=== PATIENT | male | born 1960 | race American Indian/Alaskan Native ===

== ENCOUNTER 2018-05-22 21:05 | Inpatient (IN) | payer OTHER ==
[2018-05-22] MEDS ORDERED: Enalaprilat 2.5 MG/2 ML IV ONE (21:38)
--- NOTE | 2018-05-22 21:38 | C.PDOC ---
History Of Present Illness 58 y/o male presents to the ED complaining of HTN that began earlier today. He states he went to his PMD office for a routine visit, but his BP was found to be 200/100. The patient reports he is compliant with his medication. He does not recall how long his BP has been elevated for. The patient adds he was given a prescription for Benicar but it has not yet been filled. He reports experiencing a headache and intermittent vertigo, "dizzy" feeling for two days. The patient denies any chest pain, blurred vision or focal weakness. HTN TODAY. PS WENT TO PMD OFFICE FOR ROUTINE VISIT, FOUND TO BE 200/100. PS COMPLIANT W MEDS, DOES NOT KNOW HOW LONG HAS BEEN ELEVATED. GIVEN RX FOR BENICAR BUT HAS NOT FILLED IT YET. +SOLORIO, INTERMIT VERTIGO-LIKE DIZZY X 2 DAYS. NO OTHER ASSOC SX EXAM 208/120 NAD NONTOXIC NEG Time Seen by Provider: 05/22/18 21:24 Chief Complaint (Nursing): High Blood Pressure History Per: Patient History/Exam Limitations: no limitations Onset/Duration Of Symptoms: Hrs Current Symptoms Are (Timing): Still Present Associated Symptoms: Dizziness, Headache Recent travel outside of the [place]: No Past Medical History Reviewed: Historical Data, Nursing Documentation, Vital Signs Vital Signs: Last Vital Signs Temp 98.3 F 05/22/18 23:21 Pulse 93 H 05/22/18 23:38 Resp 15 05/22/18 23:38 BP 200/122 H 05/22/18 23:38 Pulse Ox 99 05/22/18 23:38 - Medical History PMH: HTN Other Surgeries: Colon resection Family History: States: Unknown Family Hx - Social History Hx Alcohol Use: Yes Hx Substance Use: No - Immunization History Hx Tetanus Toxoid Vaccination: No Hx Influenza Vaccination: No Hx Pneumococcal Vaccination: No Review Of Systems Except As Marked, All Systems Reviewed And Found Negative. Constitutional: Negative for: Fever Neurological: Positive for: Headache, Dizziness Physical Exam - Physical Exam Appears: Non-toxic, No Acute Distress Skin: Normal Color, Warm, Dry Head: Atraumatic, Normacephalic Eye(s): bilateral: PERRL, EOMI Ear(s): Bilateral: Normal Oral Mucosa: Moist Neck: Normal ROM Chest: Symmetrical Cardiovascular: No Murmur, Other (208/120) Respiratory: No Rales, No Rhonchi, No Wheezing, Other (NARD) Gastrointestinal/Abdominal: Bowel Sounds, Soft, No Tenderness Extremity: Normal ROM Extremity: Bilateral: Atraumatic, Normal Color And Temperature, Normal ROM Pulses: Left Radial: Normal, Right Radial: Normal Neurological/Psych: Oriented x3, Normal Speech, Other (no focal deficits ) ED Course And Treatment - Laboratory Results Result Diagrams: 05/22/18 22:38 05/22/18 22:38 ECG: Interpreted By Me ECG Rhythm: Sinus Rhythm Interpretation Of ECG: BIFASC Rate From EC O2 Sat by Pulse Oximetry: 99 (RA) Pulse Ox Interpretation: Normal - Radiology CXR: Interpreted by Me CXR Interpretation: Yes: Other (L CHEST MASS) - CT Scan/US Head Other Rad Studies (CT/US): Read By Radiologist, Radiology Report Reviewed CT/US Interpretation: IMPRESSION: LEFT cerebellar mass with focal mass effect upon the fourth ventricle. No ventriculomegaly. Thank you for allowing us to participate in the care of your patient. Progress - Re-Evaluation Re-evaluation Note: 05/22/18 22:50 PERSIST HTN, SOLORIO IMPROVED. NEURO INTACT. PT NOW STATES HO COLON CA W RESECTION 2006, GETS ANNUAL COLONOSCOPY "AND WAS ALWAYS FINE". HO SARCOIDOSIS, DENIES SARCOID FLARE IN 17 YRS. @ BEDSIDE, STATES PT RECEIVED BENICAR 2 WKS AGO AND PT TRIED FILL RX BUT NONE @ PHARMACY. 05/22/18 23:00 D/W DR ANGELA C/F ICU AWARE OF ER FINDINGS WILL EVAL 05/22/18 23:08 D/W DR CANALES DECMADHURON 10 MG, WILL CONSULT. 05/22/18 23:15 D/W DR REGALADO MED SWIMMING POOL SALESPERSON WILL ADMIT. PENDING ICU EVAL 05/22/18 23:39 ACCEPTED FOR ICU - Data Reviewed Data Reviewed: Lab, Diagnostic imaging, EKG, Old records - Critical Care Citical Care: Excluding Proc Time Critical Care Time: 90 minutes - Continuity of Care Discussed patient case with:: Patient, Family-HIPPA compliant, On-call PMD-pt unassigned Discussed pt. case with it architecture consultant/specialty: Neurological Surgery, Pulmonary/ Crit. Care Medical Decision Making Medical Decision Making: Impression: 58 y/o male with HTN, reports a SOLORIO and feeling dizzy Plan: -Head CT -EKG -CMP -CBC -PTT -PT -Chest X-Ray -Reglan 10 mg IV -Trandate 20 mg IV -Tylenol 650 mg PO -Vasotec 2.5 mg Disposition Counseled Patient/Family Regarding: Studies Performed, Diagnosis - Disposition Disposition: HOSPITALIZED Disposition Time: 23:10 Condition: SERIOUS Forms: [facility] (Stateless) - POA Present On Arrival: None - Clinical Impression Clinical Impression: Hypertensive emergency, Brain mass, Headache - PA / OUTREACH CONSULTANT / Resident Statement MD/DO has reviewed & agrees with the documentation as recorded. - Scribe Statement The provider has reviewed the documentation as recorded by the Scribe (Lucia Leung) All medical record entries made by the Scribe were at my direction and personally dictated by me. I have reviewed the chart and agree that the record accurately reflects my personal performance of the history, physical exam, medical decision making, and the department course for this patient. I have also personally directed, reviewed, and agree with the discharge instructions and disposition.
[2018-05-22] MEDS ORDERED: Enalaprilat 2.5 MG/2 ML ONE (21:47)
[2018-05-22] MEDS ORDERED: Labetalol 25mg/5ml Syringe IVP STA (22:34)
[2018-05-22 22:46] LABS: BASO % 0.5 % (0.0-2.0); EOS # 0.1 K/uL (0.0-0.7); EOS % 1.1 % (0.0-4.0); HEMOGLOBIN 14.8 g/dL (12.0-18.0); LYMPH # 1.6 K/uL (1.0-4.3); LYMPH % 26.6 % (20.0-40.0); MEAN CELL VOLUME 82.3 fL (80.0-94.0); MEAN CORPUSCULAR HGB CONC 34.1 g/dL (33.0-37.0); MEAN PLATELET VOLUME 8.1 fL (7.2-11.7); MONO # 0.7 K/uL (0.0-0.8); MONO % 11.9 % (0.0-10.0); NEUT # 3.7 K/uL (1.8-7.0); NEUT % 59.9 % (50.0-75.0); NRBC % 0.1 % (0.0-2.0); RBC 5.26 Mil/uL (4.40-5.90); WHITE BLOOD COUNT 6.1 K/uL (4.8-10.8)
[2018-05-22 22:51] LABS: INR 1.1; PROTHROMBIN TIME 11.7 SECONDS (9.7-12.2)
[2018-05-22 22:55] LABS: ALB/GLOB RATIO 1.2 (1.0-2.1); CALCIUM 9.4 mg/dl (8.6-10.4)
--- NOTE | 2018-05-22 23:54 | CP.PCM.CON ---
History of Present Illness - History of Present Illness History of Present Illness: CCM 58 yo black male with hx HTN/Colon Ca/ s/p Resection 2006/Sarcoidosis to ED c/o SOLORIO x 3 days. Also with dizziness and unsteady ambulating. No sob/ visual change /n /v /d /urinary sx. Pt only compliant with nrovasc not recently prescribed benicar. In ED BP 191/124 and pt given IV enalapril then labetolol. Pt currently without SOLORIO. ROS- as noted All- ?floreseine dye Social- no tob/etoh/ drugs Meds-reviewed FH- Unknown PE T-98.3 P-93 R-22 BP 206/120 Perrl Neck- no jvd lungs- bilat bs Heart-rr aBd- benign eXt- nontender Neuro- no motor or sensory deficits Labs, ekg, [id number] A&P HTN Emergency Left Cerebellar Brain Mass Left Lung Mass Hx Colon Ca Sarcoidosis MICHELLE Admit to ICU BP control with Cardene Neurosurgery eval Repeat CT Brain as per NS Neuro checks cont decadron CT Chest Pulmonary eval DVT & GI prophylaxis critical care time spent 35 min Past Patient History - Infectious Disease Hx of Infectious Diseases: None - Past Social History Smoking Status: Never Smoked - CARDIAC Hx Hypertension: Yes - HEMATOLOGICAL/ONCOLOGICAL Hx Cancer: Yes (colon ca 2006) - PSYCHIATRIC Hx Substance Use: No - SURGICAL HISTORY Hx Surgeries: Yes Other/Comment: Colon Resection - ANESTHESIA Hx Anesthesia: Yes Hx Anesthesia Reactions: No Meds Allergies/Adverse Reactions: Allergies Allergy/AdvReac Type Severity Reaction Status Date / Time dye Allergy Uncoded 05/22/18 21:26 Results - Vital Signs Recent Vital Signs: Last Vital Signs Temp 98.3 F 05/22/18 23:21 Pulse 93 H 05/22/18 23:38 Resp 15 05/22/18 23:38 BP 200/122 H 05/22/18 23:38 Pulse Ox 99 05/22/18 23:39 - Labs Result Diagrams: 05/22/18 22:38 05/22/18 22:38 Labs: Laboratory Results - last 24 hr 05/22/18 05/22/18 05/22/18 22:38 22:38 22:38 WBC 6.1 RBC 5.26 Hgb 14.8 Hct 43.3 MCV 82.3 MCH 28.0 MCHC 34.1 RDW 14.0 Plt Count 211 MPV 8.1 Neut % (Auto) 59.9 Lymph % (Auto) 26.6 Wolfe % (Auto) 11.9 H Eos % (Auto) 1.1 Baso % (Auto) 0.5 Neut # (Auto) 3.7 Lymph # (Auto) 1.6 Wolfe # (Auto) 0.7 Eos # (Auto) 0.1 Baso # (Auto) 0.0 PT 11.7 INR 1.1 APTT 35 H Sodium 139 Potassium 3.9 Chloride 98 Carbon Dioxide 32 H Anion Gap 13 BUN 24 H Creatinine 1.5 Est GFR ( Amer) 58 Est GFR (Non-Af Amer) 48 Random Glucose 101 Calcium 9.4 Total Bilirubin 0.6 AST 41 ALT 31 Alkaline Phosphatase 64 Total Protein 7.4 Albumin 4.0 Globulin 3.4 Albumin/Globulin Ratio 1.2 Assessment & Plan (1) Hypertensive emergency Status: Acute (2) Brain mass Status: Acute (3) Sarcoidosis Status: Chronic (4) Hx of malignant neoplasm of colon Status: Chronic (5) Lung abnormality Status: Acute
[2018-05-23] MEDS: niCARdipine IV 25 MG in Sodium Chloride 0.9% 240 ML IV PRN ×2 (00:26→08:01)
[2018-05-23] MEDS: Dexamethasone 4 mg/1 ml IV SCH ×3 (05:15→18:27)
[2018-05-23 06:22] LABS: BASO % 0.3 % (0.0-2.0); EOS % 0.1 % (0.0-4.0); HEMOGLOBIN 14.9 g/dL (12.0-18.0); LYMPH # 0.6 K/uL (1.0-4.3); MEAN CELL VOLUME 81.4 fL (80.0-94.0); MEAN CORPUSCULAR HEMOGLOBIN 27.7 pg (27.0-31.0); MEAN PLATELET VOLUME 8.4 fL (7.2-11.7); MONO # 0.2 K/uL (0.0-0.8); MONO % 2.4 % (0.0-10.0); NEUT # 5.4 K/uL (1.8-7.0); NEUT % 87.2 % (50.0-75.0); NRBC % 0.1 % (0.0-2.0); RBC 5.38 Mil/uL (4.40-5.90); RED CELL DISTRIBUTION WIDTH 13.9 % (11.5-14.5); WHITE BLOOD COUNT 6.2 K/uL (4.8-10.8)
[2018-05-23 06:37] LABS: ALB/GLOB RATIO 1.2 (1.0-2.1); ALBUMIN 4.3 g/dL (3.5-5.0); CALCIUM 9.6 mg/dl (8.6-10.4)
--- NOTE | 2018-05-23 07:58 | CT ---
Date of service: 05/22/2018 PROCEDURE: CT HEAD WITHOUT CONTRAST. HISTORY: Hypertension. Headache. COMPARISON: None available. TECHNIQUE: Axial computed tomography images were obtained through the head/brain without intravenous contrast. Radiation dose: Total exam DLP = 1196 mGy-cm. This CT exam was performed using one or more of the following dose reduction techniques: Automated exposure control, adjustment of the mA and/or kV according to patient size, and/or use of iterative reconstruction technique. FINDINGS: HEMORRHAGE: No intracranial hemorrhage. BRAIN: 2.9 x 2.7 centimeter mass in the left cerebellar hemisphere which has scattered areas of peripheral and central increased attenuation as well as demonstrating surrounding edema and focal mass effect on the left aspect of the 4th ventricle. VENTRICLES: Unremarkable. No hydrocephalus. CALVARIUM: Unremarkable. PARANASAL SINUSES: Unremarkable as visualized. No significant inflammatory changes. MASTOID AIR CELLS: Unremarkable as visualized. No inflammatory changes. OTHER FINDINGS: None. IMPRESSION: 2.9 centimeter left cerebellar mass with focal mass effect on the 4th ventricle. Further evaluation with contrast-enhanced MRI would be helpful for better evaluation of this lesion if clinically indicated. These findings were preliminarily reported at 10:40 p.m. on 05/22/[address] Anisa Camacho from [facility]. Dr. Hurtado discussed these findings with Dr. Glass at 10:58 p.m. on 05/22/2018.
--- NOTE | 2018-05-23 08:37 | RAD ---
HISTORY: COMPARISON: No prior. TECHNIQUE: Chest PA and lateral FINDINGS: LINES AND TUBES: None. LUNG AND PLEURA: The lungs are well inflated. There is a well-circumscribed opacity in the left perihilar region. The right lung is clear. No pleural effusion or pneumothorax. HEART AND MEDIASTINUM: The heart is not enlarged. The hilar and mediastinal contours are within normal limits. SKELETAL STRUCTURES: The bony structures are within normal limits for the patient's age. VISUALIZED UPPER ABDOMEN: Normal. OTHER FINDINGS: None. IMPRESSION: Well-circumscribed opacity in the left perihilar region. Further evaluation with CT scan with intravenous contrast is advised.
--- NOTE | 2018-05-23 08:44 | CP.CCUPN ---
<Walter Eller - Last Filed: 05/23/18 16:19> CCU Subjective - Physician Review Subjective (Free Text): 05/23/18 16:01 ICU Progress Note Patient seen and examined at bedside. He states he no longer has a headache and does not feel dizzy currently. He states he has not been walking but prior to admission has not been able to walk straight. He states he has only been taking Norvasc consistently. He admits he was recently prescribed Benicar but was not able to fill his script. He denies fever, chills, chest pain, difficulty breathing, abdominal pain, nausea, vomiting, diarrhea, leg pain. He states he was diagnosed with colon cancer in 2006 and had a colon resection then. 05/23/18 16:19 05/23/18 16:23 CCU Objective - Vital Signs / Intake & Output Vital Signs (Last 4 hours): Vital Signs Temp Pulse Resp BP Pulse Ox 05/23/18 06:00 98 F 96 H 17 96 05/23/18 05:48 139/92 H 05/23/18 05:00 82 12 95 05/23/18 04:48 151/77 H Intake and Output (Last 8hrs): Intake & Output 05/22/18 05/23/18 05/23/18 22:59 06:59 14:59 Intake Total 540 Output Total 500 Balance 40 Weight 230 lb 230 lb Intake: IV 250 Intake, IV Amount 290 Right Antecubital 290 Output: Urine 500 Urine, Voided 500 Other: # Bowel Movements 1 - Physical Exam Head: Positive for: Atraumatic, Normocephalic Pupils: Positive for: PERRL Extroacular Muscles: Positive for: EOMI Mouth: Positive for: Moist Mucous Membranes Neck: Positive for: Normal Range of Motion Respiratory/Chest: Positive for: Decreased Breath Sounds Cardiovascular: Positive for: Regular Rate and Rhythm, Normal S1, S2 Abdomen: Positive for: Normal Bowel Sounds. Negative for: Tenderness, Peritoneal Signs Upper Extremity: Positive for: NORMAL PULSES. Negative for: Edema Lower Extremity: Negative for: CALF TENDERNESS Neurological: Positive for: GCS=15, Speech Normal Skin: Positive for: Warm, Dry Psychiatric: Positive for: Alert, Oriented x 3 - Medications Active Medications: Active Medications Generic Name Dose Route Start Last Admin Trade Name Freq PRN Reason Stop Dose Admin Acetaminophen 650 mg 05/23/18 00:06 Tylenol 325mg Tab PO Q4 PRN Pain, Mild (1-3) Dexamethasone 4 mg 05/23/18 06:00 05/23/18 05:15 Decadron Inj IV 4 mg Q6H HAL Administration Famotidine 20 mg 05/23/18 00:15 05/23/18 00:17 Pepcid IVP 20 mg Q12 HAL Administration Nicardipine HCl 25 mg/ Sodium 250 mls @ 50 mls/hr 05/23/18 00:15 05/23/18 08: 01 Chloride IV 3 mg/hr .Q5H PRN 30 mls/hr Protocol Administration 5 MG/HR - Patient Studies Lab Studies: Lab Studies 05/23/18 05/23/18 05/22/18 Range/Units 06:12 06:12 22:38 WBC 6.2 (4.8-10.8) K/uL RBC 5.38 (4.40-5.90) Mil/uL Hgb 14.9 (12.0-18.0) g/dL Hct 43.8 (35.0-51.0) % MCV 81.4 (80.0-94.0) fL MCH 27.7 (27.0-31.0) pg MCHC 34.0 (33.0-37.0) g/dL RDW 13.9 (11.5-14.5) % Plt Count 244 (130-400) K/uL MPV 8.4 (7.2-11.7) fL Neut % (Auto) 87.2 H (50.0-75.0) % Lymph % (Auto) 10.0 L (20.0-40.0) % [place] % (Auto) 2.4 (0.0-10.0) % Eos % (Auto) 0.1 (0.0-4.0) % Baso % (Auto) 0.3 (0.0-2.0) % Neut # (Auto) 5.4 (1.8-7.0) K/uL Lymph # (Auto) 0.6 L (1.0-4.3) K/uL [place] # (Auto) 0.2 (0.0-0.8) K/uL Eos # (Auto) 0.0 (0.0-0.7) K/uL Baso # (Auto) 0.0 (0.0-0.2) K/uL PT (9.7-12.2) SECONDS INR APTT (21-34) SECONDS Sodium 139 139 (132-148) mmol/L Potassium 4.0 3.9 (3.6-5.2) mmol/L Chloride 101 98 (98-107) mmol/L Carbon Dioxide 28 32 H (22-30) mmol/L Anion Gap 15 13 (10-20) BUN 24 H 24 H (9-20) mg/dL Creatinine 1.7 H 1.5 (0.8-1.5) mg/dL Est GFR ( Amer) 50 58 Est GFR (Non-Af Amer) 41 48 Random Glucose 161 H 101 (75-110) mg/dL Calcium 9.6 9.4 (8.6-10.4) mg/dl Total Bilirubin 0.5 0.6 (0.2-1.3) mg/dL AST 33 41 (17-59) U/L ALT 34 31 (21-72) U/L Alkaline Phosphatase 73 64 (38-126) U/L Total Protein 7.9 7.4 (6.3-8.3) g/dL Albumin 4.3 4.0 (3.5-5.0) g/dL Globulin 3.5 3.4 (2.2-3.9) gm/dL Albumin/Globulin Ratio 1.2 1.2 (1.0-2.1) 05/22/18 05/22/18 Range/Units 22:38 22:38 WBC 6.1 (4.8-10.8) K/uL RBC 5.26 (4.40-5.90) Mil/uL Hgb 14.8 (12.0-18.0) g/dL Hct 43.3 (35.0-51.0) % MCV 82.3 (80.0-94.0) fL MCH 28.0 (27.0-31.0) pg MCHC 34.1 (33.0-37.0) g/dL RDW 14.0 (11.5-14.5) % Plt Count 211 (130-400) K/uL MPV 8.1 (7.2-11.7) fL Neut % (Auto) 59.9 (50.0-75.0) % Lymph % (Auto) 26.6 (20.0-40.0) % [place] % (Auto) 11.9 H (0.0-10.0) % Eos % (Auto) 1.1 (0.0-4.0) % Baso % (Auto) 0.5 (0.0-2.0) % Neut # (Auto) 3.7 (1.8-7.0) K/uL Lymph # (Auto) 1.6 (1.0-4.3) K/uL [place] # (Auto) 0.7 (0.0-0.8) K/uL Eos # (Auto) 0.1 (0.0-0.7) K/uL Baso # (Auto) 0.0 (0.0-0.2) K/uL PT 11.7 (9.7-12.2) SECONDS INR 1.1 APTT 35 H (21-34) SECONDS Sodium (132-148) mmol/L Potassium (3.6-5.2) mmol/L Chloride (98-107) mmol/L Carbon Dioxide (22-30) mmol/L Anion Gap (10-20) BUN (9-20) mg/dL Creatinine (0.8-1.5) mg/dL Est GFR ( Amer) Est GFR (Non-Af Amer) Random Glucose (75-110) mg/dL Calcium (8.6-10.4) mg/dl Total Bilirubin (0.2-1.3) mg/dL AST (17-59) U/L ALT (21-72) U/L Alkaline Phosphatase (38-126) U/L Total Protein (6.3-8.3) g/dL Albumin (3.5-5.0) g/dL Globulin (2.2-3.9) gm/dL Albumin/Globulin Ratio (1.0-2.1) Laboratory Results - last 24 hr 05/22/18 05/22/18 05/22/18 22:38 22:38 22:38 WBC 6.1 RBC 5.26 Hgb 14.8 Hct 43.3 MCV 82.3 MCH 28.0 MCHC 34.1 RDW 14.0 Plt Count 211 MPV 8.1 Neut % (Auto) 59.9 Lymph % (Auto) 26.6 [place] % (Auto) 11.9 H Eos % (Auto) 1.1 Baso % (Auto) 0.5 Neut # (Auto) 3.7 Lymph # (Auto) 1.6 [place] # (Auto) 0.7 Eos # (Auto) 0.1 Baso # (Auto) 0.0 PT 11.7 INR 1.1 APTT 35 H Sodium 139 Potassium 3.9 Chloride 98 Carbon Dioxide 32 H Anion Gap 13 BUN 24 H Creatinine 1.5 Est GFR ( Amer) 58 Est GFR (Non-Af Amer) 48 Random Glucose 101 Calcium 9.4 Total Bilirubin 0.6 AST 41 ALT 31 Alkaline Phosphatase 64 Total Protein 7.4 Albumin 4.0 Globulin 3.4 Albumin/Globulin Ratio 1.2 05/23/18 05/23/18 06:12 06:12 WBC 6.2 RBC 5.38 Hgb 14.9 Hct 43.8 MCV 81.4 MCH 27.7 MCHC 34.0 RDW 13.9 Plt Count 244 MPV 8.4 Neut % (Auto) 87.2 H Lymph % (Auto) 10.0 L [place] % (Auto) 2.4 Eos % (Auto) 0.1 Baso % (Auto) 0.3 Neut # (Auto) 5.4 Lymph # (Auto) 0.6 L [place] # (Auto) 0.2 Eos # (Auto) 0.0 Baso # (Auto) 0.0 PT INR APTT Sodium 139 Potassium 4.0 Chloride 101 Carbon Dioxide 28 Anion Gap 15 BUN 24 H Creatinine 1.7 H Est GFR ( Amer) 50 Est GFR (Non-Af Amer) 41 Random Glucose 161 H Calcium 9.6 Total Bilirubin 0.5 AST 33 ALT 34 Alkaline Phosphatase 73 Total Protein 7.9 Albumin 4.3 Globulin 3.5 Albumin/Globulin Ratio 1.2 EKG/Cardiology Studies: Cardiology / EKG Studies 05/22/18 21:38 ELECTROCARDIOGRAM Stat Comment: Mode Of Transportation: BED Reason For Exam: HTN Review of Systems - Constitutional Constitutional: absent: Fever, Chills - EENT Eyes: absent: Change in Vision Nose/Mouth/Throat: absent: Sore Throat - Cardiovascular Cardiovascular: absent: Chest Pain, Dyspnea - Respiratory Respiratory: absent: Cough, Dyspnea - Gastrointestinal Gastrointestinal: absent: Abdominal Pain, Nausea, Vomiting - Genitourinary Genitourinary: absent: Difficulty Urinating, Dysuria - Musculoskeletal Musculoskeletal: Abnormal Gait. absent: Back Pain - Psychiatric Psychiatric: absent: Anxiety, Depression Assessment/Plan - Assessment and Plan (Free Text) Assessment: 58 year Madie male with history of HTN, Colon Cancer s/p Resection 2006, sarcoidosis complains of 3 day history of headache, dizziness and unsteady gait. Blood pressure found to be elevated at 191/124. Patient was on Cardene drip, prior to being transitioned to PO meds. Plan: Neuro Alert and oriented CT head 2.9 centimeter left cerebellar mass with focal mass effect on the 4th ventricle. Further evaluation with contrast-enhanced MRI would be helpful for better evaluation of this lesion if clinically indicated. Repeat CT head No change in a 2.9 centimeter left cerebellar mass with focal mass effect on the 4th ventricle. Decadron 4mg IV Q6 Neurosurgery Dr. Hartmann consulted, help appreciated MRI brain with and without contrast ordered. Pulmonary CXR: Well-circumscribed opacity in the left perihilar region CT chest 6.8 x 5.9 cm mass in the left upper lobe with internal calcifications and extension toward the left hilum. Additional bilateral lung lesions measuring up to 2 cm in the left lower lobe/ Large bilateral adrenal masses, left greater than right.Findings likely represent lung carcinoma primary with intraparenchymal and adrenal metastases. Hedge Trimmer Dr. Kent consulted, help appreciated Cardiovascular Hx of HTN, currently BP improved from admission. Norvasc 10mg PO HCTZ 25mg PO Losartan 100mg PO Nicardipine drip d/mike GI Pepcid 20mg IV Q12 Renal Continue to monitor electrolytes, replete as needed I&Os BUN/Cr 24/1.7 Endo Maintain euglycemia ID No evidence of infection Heme/Onc Dr. Elam consulted, help appreciated PPX Case discussed with Dr. Tejada <Chance Tejada - Last Filed: 05/23/18 18:18> CCU Objective - Vital Signs / Intake & Output Vital Signs (Last 4 hours): Vital Signs Temp Pulse Resp BP Pulse Ox 05/23/18 16:00 99.3 F 107 H 18 97 05/23/18 15:28 113 H 16 165/104 H 98 Intake and Output (Last 8hrs): Intake & Output 05/23/18 05/23/18 05/23/18 06:59 14:59 22:59 Intake Total 540 720 740 Output Total 500 0 0 Balance 40 720 740 Weight 230 lb Intake: IV 250 240 Intake, IV Amount 290 240 20 Right Antecubital 290 240 20 Oral 480 480 Output: Urine 500 0 0 Urine, Voided 500 0 0 Stool 0 Other: # Bowel Movements 1 0 0 - Medications Active Medications: Active Medications Generic Name Dose Route Start Last Admin Trade Name Freq PRN Reason Stop Dose Admin Acetaminophen 650 mg 05/23/18 00:06 Tylenol 325mg Tab PO Q4 PRN Pain, Mild (1-3) Amlodipine Besylate 10 mg 05/23/18 12:30 05/23/18 12:32 Norvasc PO 10 mg DAILY HAL Administration Dexamethasone 4 mg 05/23/18 06:00 05/23/18 12:31 Decadron Inj IV 4 mg Q6H HAL Administration Famotidine 20 mg 05/23/18 00:15 05/23/18 09:34 Pepcid IVP 20 mg Q12 HAL Administration Hydrochlorothiazide 25 mg 05/23/18 12:30 05/23/18 12:32 Hydrodiuril PO 25 mg DAILY HAL Administration Nicardipine HCl 25 mg/ Sodium 250 mls @ 50 mls/hr 05/23/18 00:15 05/23/18 15: 30 Chloride IV 0 mg/hr .Q5H PRN 0 mls/hr Protocol Titration 5 MG/HR Losartan Potassium 100 mg 05/23/18 12:30 05/23/18 12:32 Cozaar PO 100 mg DAILY HAL Administration Losartan Potassium 50 mg 05/23/18 18:00 Cozaar PO ONCE PRN for BP greater than 160/90 - Patient Studies Lab Studies: Lab Studies 05/23/18 05/23/18 05/22/18 Range/Units 06:12 06:12 22:38 WBC 6.2 (4.8-10.8) K/uL RBC 5.38 (4.40-5.90) Mil/uL Hgb 14.9 (12.0-18.0) g/dL Hct 43.8 (35.0-51.0) % MCV 81.4 (80.0-94.0) fL MCH 27.7 (27.0-31.0) pg MCHC 34.0 (33.0-37.0) g/dL RDW 13.9 (11.5-14.5) % Plt Count 244 (130-400) K/uL MPV 8.4 (7.2-11.7) fL Neut % (Auto) 87.2 H (50.0-75.0) % Lymph % (Auto) 10.0 L (20.0-40.0) % [place] % (Auto) 2.4 (0.0-10.0) % Eos % (Auto) 0.1 (0.0-4.0) % Baso % (Auto) 0.3 (0.0-2.0) % Neut # (Auto) 5.4 (1.8-7.0) K/uL Lymph # (Auto) 0.6 L (1.0-4.3) K/uL [place] # (Auto) 0.2 (0.0-0.8) K/uL Eos # (Auto) 0.0 (0.0-0.7) K/uL Baso # (Auto) 0.0 (0.0-0.2) K/uL PT (9.7-12.2) SECONDS INR APTT (21-34) SECONDS Sodium 139 139 (132-148) mmol/L Potassium 4.0 3.9 (3.6-5.2) mmol/L Chloride 101 98 (98-107) mmol/L Carbon Dioxide 28 32 H (22-30) mmol/L Anion Gap 15 13 (10-20) BUN 24 H 24 H (9-20) mg/dL Creatinine 1.7 H 1.5 (0.8-1.5) mg/dL Est GFR ( Amer) 50 58 Est GFR (Non-Af Amer) 41 48 Random Glucose 161 H 101 (75-110) mg/dL Calcium 9.6 9.4 (8.6-10.4) mg/dl Total Bilirubin 0.5 0.6 (0.2-1.3) mg/dL AST 33 41 (17-59) U/L ALT 34 31 (21-72) U/L Alkaline Phosphatase 73 64 (38-126) U/L Total Protein 7.9 7.4 (6.3-8.3) g/dL Albumin 4.3 4.0 (3.5-5.0) g/dL Globulin 3.5 3.4 (2.2-3.9) gm/dL Albumin/Globulin Ratio 1.2 1.2 (1.0-2.1) 05/22/18 05/22/18 Range/Units 22:38 22:38 WBC 6.1 (4.8-10.8) K/uL RBC 5.26 (4.40-5.90) Mil/uL Hgb 14.8 (12.0-18.0) g/dL Hct 43.3 (35.0-51.0) % MCV 82.3 (80.0-94.0) fL MCH 28.0 (27.0-31.0) pg MCHC 34.1 (33.0-37.0) g/dL RDW 14.0 (11.5-14.5) % Plt Count 211 (130-400) K/uL MPV 8.1 (7.2-11.7) fL Neut % (Auto) 59.9 (50.0-75.0) % Lymph % (Auto) 26.6 (20.0-40.0) % [place] % (Auto) 11.9 H (0.0-10.0) % Eos % (Auto) 1.1 (0.0-4.0) % Baso % (Auto) 0.5 (0.0-2.0) % Neut # (Auto) 3.7 (1.8-7.0) K/uL Lymph # (Auto) 1.6 (1.0-4.3) K/uL [place] # (Auto) 0.7 (0.0-0.8) K/uL Eos # (Auto) 0.1 (0.0-0.7) K/uL Baso # (Auto) 0.0 (0.0-0.2) K/uL PT 11.7 (9.7-12.2) SECONDS INR 1.1 APTT 35 H (21-34) SECONDS Sodium (132-148) mmol/L Potassium (3.6-5.2) mmol/L Chloride (98-107) mmol/L Carbon Dioxide (22-30) mmol/L Anion Gap (10-20) BUN (9-20) mg/dL Creatinine (0.8-1.5) mg/dL Est GFR ( Amer) Est GFR (Non-Af Amer) Random Glucose (75-110) mg/dL Calcium (8.6-10.4) mg/dl Total Bilirubin (0.2-1.3) mg/dL AST (17-59) U/L ALT (21-72) U/L Alkaline Phosphatase (38-126) U/L Total Protein (6.3-8.3) g/dL Albumin (3.5-5.0) g/dL Globulin (2.2-3.9) gm/dL Albumin/Globulin Ratio (1.0-2.1) Laboratory Results - last 24 hr 05/22/18 05/22/18 05/22/18 22:38 22:38 22:38 WBC 6.1 RBC 5.26 Hgb 14.8 Hct 43.3 MCV 82.3 MCH 28.0 MCHC 34.1 RDW 14.0 Plt Count 211 MPV 8.1 Neut % (Auto) 59.9 Lymph % (Auto) 26.6 [place] % (Auto) 11.9 H Eos % (Auto) 1.1 Baso % (Auto) 0.5 Neut # (Auto) 3.7 Lymph # (Auto) 1.6 [place] # (Auto) 0.7 Eos # (Auto) 0.1 Baso # (Auto) 0.0 PT 11.7 INR 1.1 APTT 35 H Sodium 139 Potassium 3.9 Chloride 98 Carbon Dioxide 32 H Anion Gap 13 BUN 24 H Creatinine 1.5 Est GFR ( Amer) 58 Est GFR (Non-Af Amer) 48 Random Glucose 101 Calcium 9.4 Total Bilirubin 0.6 AST 41 ALT 31 Alkaline Phosphatase 64 Total Protein 7.4 Albumin 4.0 Globulin 3.4 Albumin/Globulin Ratio 1.2 05/23/18 05/23/18 06:12 06:12 WBC 6.2 RBC 5.38 Hgb 14.9 Hct 43.8 MCV 81.4 MCH 27.7 MCHC 34.0 RDW 13.9 Plt Count 244 MPV 8.4 Neut % (Auto) 87.2 H Lymph % (Auto) 10.0 L [place] % (Auto) 2.4 Eos % (Auto) 0.1 Baso % (Auto) 0.3 Neut # (Auto) 5.4 Lymph # (Auto) 0.6 L [place] # (Auto) 0.2 Eos # (Auto) 0.0 Baso # (Auto) 0.0 PT INR APTT Sodium 139 Potassium 4.0 Chloride 101 Carbon Dioxide 28 Anion Gap 15 BUN 24 H Creatinine 1.7 H Est GFR ( Amer) 50 Est GFR (Non-Af Amer) 41 Random Glucose 161 H Calcium 9.6 Total Bilirubin 0.5 AST 33 ALT 34 Alkaline Phosphatase 73 Total Protein 7.9 Albumin 4.3 Globulin 3.5 Albumin/Globulin Ratio 1.2 EKG/Cardiology Studies: Cardiology / EKG Studies 05/22/18 21:38 ELECTROCARDIOGRAM Stat Comment: Mode Of Transportation: BED Reason For Exam: HTN Critical Care Progress Note - Nutrition Nutrition: Nutrition Category Date Time Status Heart Healthy Diet [DIET] Diets 05/23/18 Lunch Active Attending/Attestation - Attestation I have personally seen and examined this patient.: Yes I have fully participated in the care of the patient.: Yes I have reviewed all pertinent clinical information: Yes Notes (Text): 05/23/18 18:14 I have seen and examined the patient. Medical records, lab studies, and imaging were reviewed by me and a management plan was formulated on multidisciplinary rounds with resident Dr. Eller. I agree with their documented assessment and plan. Patient's blood pressure is improved, started orals, and titrated off of cardene drip. He most likely has metastatic colon cancer to the brain and lung. Will obtain MRI of brain to better assess. He will most likely need neurosurgical resection of the solitary brain lesion, Dr. High - Neurosurgery following. He underwent lung biopsy today, Dr. Kent - pulmonary following. Dr. Elam - hem/onc consulted. Clinically stable for downgrade to the floors. Critical Care Time 35 minutes. Multi-disciplinary rounds were performed with house staff, nursing, speech therapy, respiratory therapy, pharmacy and nutrition with integrated input from the primary team/attending and other consulting services. The documented time is cumulative and includes review of patient data/exams/labs/chart review and examination of the patient on rounds and throughout the day; time is exclusive of any procedures or teaching time.
--- NOTE | 2018-05-23 08:59 | CT ---
Date of service: 05/23/2018 PROCEDURE: CT HEAD WITHOUT CONTRAST. HISTORY: f/u mass COMPARISON: 05/22/18 TECHNIQUE: Axial computed tomography images were obtained through the head/brain without intravenous contrast. Radiation dose: Total exam DLP = mGy-cm. This CT exam was performed using one or more of the following dose reduction techniques: Automated exposure control, adjustment of the mA and/or kV according to patient size, and/or use of iterative reconstruction technique. FINDINGS: HEMORRHAGE: No intracranial hemorrhage. BRAIN: 2.9 centimeter left cerebellar mass with vasogenic edema with focal mass effect on the 4th ventricle.No atrophy or chronic microvascular ischemic changes. VENTRICLES: Unremarkable. No hydrocephalus. CALVARIUM: Unremarkable. PARANASAL SINUSES: Unremarkable as visualized. No significant inflammatory changes. MASTOID AIR CELLS: Unremarkable as visualized. No inflammatory changes. OTHER FINDINGS: None. IMPRESSION: No change in a 2.9 centimeter left cerebellar mass with focal mass effect on the 4th ventricle.
--- NOTE | 2018-05-23 10:56 | CT ---
Date of service: 05/23/2018 PROCEDURE: CT Chest without contrast HISTORY: left lung opacity COMPARISON: None available. TECHNIQUE: Contiguous axial images were obtained through the chest without intravenous contrast enhancement. Sagittal and coronal reconstructions were performed. Radiation dose (DLP): mGy-cm. This CT exam was performed using one or more of the following dose reduction techniques: Automated exposure control, adjustment of the mA and/or kV according to patient size, and/or use of iterative reconstruction technique. FINDINGS: LUNGS: 6.8 x 5.9 cm mass in the left upper lobe with internal calcifications and extension toward the left hilum. Additional bilateral lung lesions measuring up to 2 cm in the left lower lobe. MEDIASTINUM: Unremarkable thoracic aorta. No aneurysm. Normal sized heart. Main pulmonary artery unremarkable. No vascular congestion. No lymphadenopathy. PLEURA: No pleural fluid. No pneumothorax. BONES: No fracture. No destructive lesion. UPPER ABDOMEN: Large bilateral adrenal masses, left greater than right. OTHER FINDINGS: None. IMPRESSION: 6.8 x 5.9 cm mass in the left upper lobe with internal calcifications and extension toward the left hilum. Additional bilateral lung lesions measuring up to 2 cm in the left lower lobe Large bilateral adrenal masses, left greater than right. Findings likely represent lung carcinoma primary with intraparenchymal and adrenal metastases.
--- NOTE | 2018-05-23 11:44 | CP.PCM.CON ---
<Tank Boucher - Last Filed: 05/23/18 22:36> History of Present Illness - History of Present Illness History of Present Illness: Tank Boucher DO PGY-1, [employer] Consult Note for Hematology/Oncology for Dr. Elam's Service This is a 58 y o male with PMhx Stage III Colon Adenocarcinoma (dx in 2006 via colonoscopy and surgically resected), HTN, sarcoidosis, presented with c/o headache, intermittent vertigo x 2 days, and elevated blood pressure. Pt also admitted to associated ataxia at time of symptom onset and felt like his gait at home was "a little wobbly". Pt stated at time he went to PMD prior for office visit and had blood pressure of 200/100 measured. Reports usual compliance with medications, but admitted that he did not take any bp medications at home for about 3 weeks. Was given script for Benicar as per PMD but did not have medication filled at pharmacy. Reason for consult due to lung mass, cerebellar mass found on initial work-up. Today in ICU, pt denies any acute complaints, states the headaches and vertigo have improved, states he has been ambulating out of bed without concerns about gait. Denies fever, chills, vision changes chest pain, sob, n/v/d/c, abd pain, urinary complaints, or other symptoms. PMhx: Stage III Colon Adenocarcinoma (dx in 2006, surgically resected; pt and pt 's at bedside admitted that they were offered chemotherapy at time, and refused due to wanting "more natural treatment", states they followed with oncologist outpatient for routine bloodwork); Sarcoidosis (last flare-up as per pt in 1999, had transient L ocular blindness that resolved with steroid tx); HTN Last colonoscopy 3 y ago normal as per pt; was scheduled for repeat colonoscopy Jun [address] Acosta ([facility]) PSurgHx: Lobectomy of L lung at age 9 2/2 sarcoidosis Allergies: Dye used in eye exams, IV contrast Current meds: Tylenol 650 mg q4h prn, Norvasc 10 mg daily, Decadron 4 mg IV q6h , Pepcid 20 mg IVP q12h, HCTZ 25 mg daily, Losartan 100 mg daily, Nicardipine drip Fam hx: denies Soc hx: Denies smoking or illicit drug use, social alcohol use PMD: Dr. Lujan ([place]) GI: Dr. Acosta Oncologist: pt does not remember name Review of Systems - Constitutional Constitutional: absent: Chills, Excessive Sweating, Fatigue, Fever, Headache, Increased Appetite, Malaise, Night Sweats, Weakness - EENT Eyes: absent: Blurred Vision, Change in Vision Ears: absent: Decreased Hearing, Ear Pain, Tinnitus, Abnormal Hearing, Disequilibrium, Dizziness Nose/Mouth/Throat: absent: Epistaxis, Sinus Pain, Odynophagia, Sore Throat, Neck Pain - Cardiovascular Cardiovascular: absent: Chest Pain, Dyspnea on Exertion, Edema, Palpitations - Respiratory Respiratory: absent: Cough, Dyspnea, Hemoptysis, Dyspnea on Exertion, Wheezing, Stridor, Pain on Inspiration - Gastrointestinal Gastrointestinal: absent: Abdominal Pain, Bloating, Constipation, Diarrhea, Nausea, Vomiting - Genitourinary Genitourinary: absent: Change in Urinary Stream, Difficulty Urinating, Dysuria, Hematuria, Urinary Frequency - Musculoskeletal Musculoskeletal: absent: Abnormal Gait, Back Pain, Limited Range of Motion, Numbness, Stiffness, Tingling - Neurological Neurological: absent: Abnormal Gait, Disequilibrium, Dizziness, Focal Weakness, Frequent Falls, Headaches, Lack of Coordination, Loss of Vision, Memory Loss - Psychiatric Psychiatric: absent: Behavioral Changes, Memory Loss - Hematologic/Lymphatic Hematologic: absent: Easy Bleeding, Easy Bruising, Lymphadenopathy Past Patient History - Infectious Disease Hx of Infectious Diseases: None - Past Medical History & Family History Past Medical History?: Yes - Past Social History Smoking Status: Never Smoked - CARDIAC Hx Cardiac Disorders: Yes Hx Hypertension: Yes - PULMONARY Hx Respiratory Disorders: Yes Other/Comment: hx of sarcoidosis - NEUROLOGICAL Hx Neurological Disorder: No - HEENT Hx HEENT Problems: No - RENAL Hx Chronic Kidney Disease: No - ENDOCRINE/METABOLIC Hx Endocrine Disorders: No - HEMATOLOGICAL/ONCOLOGICAL Hx Blood Disorders: Yes Hx Cancer: Yes (colon ca 2006) - INTEGUMENTARY Hx Dermatological Problems: No - MUSCULOSKELETAL/RHEUMATOLOGICAL Hx Musculoskeletal Disorders: No Hx Falls: No - GASTROINTESTINAL Hx Gastrointestinal Disorders: No - GENITOURINARY/GYNECOLOGICAL Hx Genitourinary Disorders: No - PSYCHIATRIC Hx Psychophysiologic Disorder: No Hx Substance Use: No - SURGICAL HISTORY Hx Surgeries: Yes Other/Comment: Colon Resection 2006 - ANESTHESIA Hx Anesthesia: Yes Hx Anesthesia Reactions: No Hx Malignant Hyperthermia: No Has any member of the family had a problem w/ anesthesia?: No Meds Allergies/Adverse Reactions: Allergies Allergy/AdvReac Type Severity Reaction Status Date / Time dye Allergy Uncoded 05/22/18 21:26 - Medications Medications: Current Medications Acetaminophen (Tylenol 325mg Tab) 650 mg PO Q4 PRN PRN Reason: Pain, Mild (1-3) Amlodipine Besylate (Norvasc) 10 mg PO DAILY [facility] Dexamethasone (Decadron Inj) 4 mg IV Q6H [facility] Last Admin: 05/23/18 05:15 Dose: 4 mg Famotidine (Pepcid) 20 mg IVP Q12 [facility] Last Admin: 05/23/18 09:34 Dose: 20 mg Hydrochlorothiazide (Hydrodiuril) 25 mg PO DAILY [facility] Nicardipine HCl 25 mg/ Sodium (Chloride) 250 mls @ 50 mls/hr IV .Q5H PRN; 5 MG/ HR PRN Reason: Protocol Last Admin: 05/23/18 08:01 Dose: 3 mg/hr, 30 mls/hr Losartan Potassium (Cozaar) 100 mg PO DAILY [facility] Physical Exam - Constitutional Appears: Well, Non-toxic, No Acute Distress - Head Exam Head Exam: ATRAUMATIC, NORMAL INSPECTION - Eye Exam Eye Exam: EOMI, Normal appearance, PERRL - ENT Exam ENT Exam: Mucous Membranes Moist, Normal Oropharynx - Neck Exam Neck exam: Positive for: Full Rom, Normal Inspection. Negative for: Lymphadenopathy, Thyromegaly - Respiratory Exam Respiratory Exam: NORMAL BREATHING PATTERN. absent: Accessory Muscle Use, Wheezes Additional comments: Decreased breath sounds in L upper lung field - Cardiovascular Exam Cardiovascular Exam: Tachycardia, +S1, +S2. absent: Gallop, Rubs - GI/Abdominal Exam GI & Abdominal Exam: Normal Bowel Sounds, Soft. absent: Distended, Firm, Guarding, Rebound, Rigid, Tenderness - Extremities Exam Extremities exam: Positive for: full ROM, normal capillary refill, normal inspection, pedal pulses present - Back Exam Back exam: FULL ROM, NORMAL INSPECTION. absent: paraspinal tenderness - Neurological Exam Neurological exam: Alert, CN II-XII Intact, Oriented x3, Reflexes Normal Additional comments: Sensation and motor intact, neg pronator drift, no dysmetria, motor strength 5/ 5 in all extremities - Psychiatric Exam Psychiatric exam: Normal Affect, Normal Mood - Skin Skin Exam: Dry, Intact, Warm Results - Vital Signs Recent Vital Signs: Last Vital Signs Temp 98.3 F 05/23/18 08:00 Pulse 106 H 05/23/18 11:00 Resp 21 05/23/18 11:00 BP 147/104 H 05/23/18 10:48 Pulse Ox 98 05/23/18 11:00 - Labs Result Diagrams: 05/23/18 06:12 05/23/18 06:12 Labs: Laboratory Results - last 24 hr 05/22/18 05/22/18 05/22/18 22:38 22:38 22:38 WBC 6.1 RBC 5.26 Hgb 14.8 Hct 43.3 MCV 82.3 MCH 28.0 MCHC 34.1 RDW 14.0 Plt Count 211 MPV 8.1 Neut % (Auto) 59.9 Lymph % (Auto) 26.6 Mineral % (Auto) 11.9 H Eos % (Auto) 1.1 Baso % (Auto) 0.5 Neut # (Auto) 3.7 Lymph # (Auto) 1.6 Mineral # (Auto) 0.7 Eos # (Auto) 0.1 Baso # (Auto) 0.0 PT 11.7 INR 1.1 APTT 35 H Sodium 139 Potassium 3.9 Chloride 98 Carbon Dioxide 32 H Anion Gap 13 BUN 24 H Creatinine 1.5 Est GFR ( Amer) 58 Est GFR (Non-Af Amer) 48 Random Glucose 101 Calcium 9.4 Total Bilirubin 0.6 AST 41 ALT 31 Alkaline Phosphatase 64 Total Protein 7.4 Albumin 4.0 Globulin 3.4 Albumin/Globulin Ratio 1.2 05/23/18 05/23/18 06:12 06:12 WBC 6.2 RBC 5.38 Hgb 14.9 Hct 43.8 MCV 81.4 MCH 27.7 MCHC 34.0 RDW 13.9 Plt Count 244 MPV 8.4 Neut % (Auto) 87.2 H Lymph % (Auto) 10.0 L Mineral % (Auto) 2.4 Eos % (Auto) 0.1 Baso % (Auto) 0.3 Neut # (Auto) 5.4 Lymph # (Auto) 0.6 L Mineral # (Auto) 0.2 Eos # (Auto) 0.0 Baso # (Auto) 0.0 PT INR APTT Sodium 139 Potassium 4.0 Chloride 101 Carbon Dioxide 28 Anion Gap 15 BUN 24 H Creatinine 1.7 H Est GFR ( Amer) 50 Est GFR (Non-Af Amer) 41 Random Glucose 161 H Calcium 9.6 Total Bilirubin 0.5 AST 33 ALT 34 Alkaline Phosphatase 73 Total Protein 7.9 Albumin 4.3 Globulin 3.5 Albumin/Globulin Ratio 1.2 Assessment & Plan - Assessment and Plan (Free Text) Assessment: 58 y o male with PMhx Stage III Colon Adenocarcinoma (dx in 2006 via colonoscopy and surgically resected), HTN, sarcoidosis, presented with c/o headache, intermittent vertigo x 2 days, and elevated blood pressure. Reason for consult due to lung mass, cerebellar mass found on initial work-up. Plan: Cerebellar mass -Radiographically appears to be metastatic lung ca -Recommend biopsy when more clinically stable -Recommend repeat imaging in 10-14 d as per neurosurgery recs Lung mass -As per chest CT appears to be primary mass -Biopsy when clinically stable Further recommendations as per Dr. Elam, attending. <Francisco Elam - Last Filed: 05/25/18 19:45> Results - Vital Signs Recent Vital Signs: Last Vital Signs Temp 98.4 F 05/24/18 16:00 Pulse 109 H 05/24/18 19:00 Resp 21 05/24/18 19:00 BP 143/92 H 05/24/18 18:27 Pulse Ox 97 05/24/18 16:00 - Labs Result Diagrams: 05/24/18 06:18 05/24/18 06:13 Assessment & Plan - Assessment and Plan (Free Text) Plan: Pt seen and examined, agree with Dr. Boucher's consult. 58 year old male with a history of stage III colon cancer s/p resection in 2006, deferred adjuvant chemotherapy,sarcoidosis, admitted with headache and vertigo, found to have a lung mass and brain lesion with hemorrhage. Concern for metastatic malignancy ? lung cancer. Neurosurgical evaluation, BP control per ICU, percutaneous lung lesion biopsy when more stable. Thank you for this interesting consult.
--- NOTE | 2018-05-23 14:09 | CP.PCM.HP ---
History of Present Illness - History of Present Illness History of Present Illness: COMPREHENSIVE HISTORY & PHYSICAL EXAM Patient admitted from emergency room with severe headache malignant hypertension and ataxia. HPI Patient has a history of hypertension was seen by patients PMD was prescribed new medication patient did not take any medication for the last 3 weeks for the last few days patient is been complaining of dizziness and unsteady gait and severe headache presented to ER. Initial blood pressure was 1 92 /1 24 mmHg and the CAT scan of the head shows mass in the left cerebellar lobe with some mass-effect on the fourth ventricle. Patient was admitted ICU started with IV nicardipine with resolution of his headache and dizziness. There is no evidence of any intracranial hemorrhage. CAT scan of the chest was done and showed a mass in the left upper lobe and 2 other lesions in the right lungs. There are also masses in the adrenal glands. PAST HIST. Patient has a diagnosis of adeno CA of the colon stage III diagnosed 2006 with initial resection. Patient declined chemotherapy and tried home therapy. PERSONAL HIST: Smoking. Yes Alcohol. N Allergy N Travel_- . FAMILY HIST : ROS : Constitutional: Negative for weight change, chills, night sweats, Eyes: Negative for redness, swelling, itching, discharge, vision changes, blurry vision, double vision, glaucoma, cataracts, Ears: Negative for hearing loss, Nose: Negative for rhinorrhea, stuffiness, sniffing, itching, postnasal drip, discoloration, nasal congestion and epistaxis. Throat: Negative for throat clearing, sore throat, hoarseness, difficulty swallowing and difficulty speaking. Respiratory: Negative for cough, , sputum production, chest tightness, wheezing, pleuritic chest pain ,daytime somnolence, chronic cough, hemoptysis, snoring at night, Cardiovascular: Negative for chest pain, palpitations, PND, Edema of legs, leg cramps, angina, claudication, , irregular heartbeat, Neurology: Headache dizziness unsteady gait no local motor or sensory deficit. Gastrointestinal: Negative for difficulty swallowing, diarrhea, constipation, black stools, rectal bleeding, nausea, flatulence, reflux, poor appetite, changes in bowel habits, abdominal pain Genitourinary: Negative for frequent urination, hematuria, discharge, incontinence, urinary retention, frequent UTI, Psychiatric: Negative for depression, anxiety/panic, suicidal tendencies, Musculoskeletal: Negative for swollen joints, back pain, , neck pain, morning stiffness of joints, . Skin: Negative for rash, ulcers, itching, dry skin and pigmented lesions. P/E: Constitutional: Appears stated age and in no apparent distress. Head: Normocephalic. Ears: External ear canals patent without inflammation. Tympanic membranes intact with normal light reflex and landmark. Eyes: Pupils are central, bilaterally equal, symmetrical and reacts to light with normal movements and no icterus or pallor. Nose: External nares are patent. Mucosa is pink Mouth-Throat: Good general appearance and condition. No post-pharyngeal/oropharyngeal erythema and tonsillar hypertrophy. Good dental hygiene. Neck-Lymphatic: Neck is supple with normal ROM, no thyromegaly, lymph nodes or masses. JVD is normal with no carotid bruit. Lungs: Clear to percussion and auscultation with bilateral normal air entry. Cardiovascular: S1 and S2 are normal with no murmurs, gallops and rub. GI Exam: No hepatomegaly. Abdomen is soft and non-tender. No Organomegaly , masses or hernias are evident and bowel sounds are normal and active. Neurology: Higher function and all cranial nerves intact, with no gross motor or sensory deficit. Superficial and deep reflexes are normal with downwards planters. No cerebellar deficit with normal gait. Musculoskeletal: No tender spots with normal curvature of the spine with no swelling or restricted ROM of the small and large joints. Extremities: Homans sign absent. Intact pulses with no pitting edema, calf tenderness or skin color changes. Skin: No rash, eruptions or abnormal skin pigmentation LAB/RADIOLOGY: ASSESMENT : Malignant hypertension with cerebral encephalopathy secondary to hypertension. Probably metastatic colon cancer to the brain and the lungs PLAN: Continue the therapy as outlined by the ICU protocol. Present on Admission - Present on Admission Any Indicators Present on Admission: No Past Patient History - Infectious Disease Hx of Infectious Diseases: None - Past Medical History & Family History Past Medical History?: Yes - Past Social History Smoking Status: Never Smoked - CARDIAC Hx Cardiac Disorders: Yes Hx Hypertension: Yes - PULMONARY Hx Respiratory Disorders: Yes Other/Comment: hx of sarcoidosis - NEUROLOGICAL Hx Neurological Disorder: No - HEENT Hx HEENT Problems: No - RENAL Hx Chronic Kidney Disease: No - ENDOCRINE/METABOLIC Hx Endocrine Disorders: No - HEMATOLOGICAL/ONCOLOGICAL Hx Blood Disorders: Yes Hx Cancer: Yes (colon ca 2006) - INTEGUMENTARY Hx Dermatological Problems: No - MUSCULOSKELETAL/RHEUMATOLOGICAL Hx Musculoskeletal Disorders: No Hx Falls: No - GASTROINTESTINAL Hx Gastrointestinal Disorders: No - GENITOURINARY/GYNECOLOGICAL Hx Genitourinary Disorders: No - PSYCHIATRIC Hx Psychophysiologic Disorder: No Hx Substance Use: No - SURGICAL HISTORY Hx Surgeries: Yes Other/Comment: Colon Resection 2007 - ANESTHESIA Hx Anesthesia: Yes Hx Anesthesia Reactions: No Hx Malignant Hyperthermia: No Has any member of the family had a problem w/ anesthesia?: No Meds Allergies/Adverse Reactions: Allergies Allergy/AdvReac Type Severity Reaction Status Date / Time dye Allergy Uncoded 05/22/18 21:26 Results - Vital Signs Recent Vital Signs: Last Vital Signs Temp 97.6 F 05/23/18 12:00 Pulse 108 H 05/23/18 13:05 Resp 21 05/23/18 13:05 BP 172/100 H 05/23/18 13:05 Pulse Ox 97 05/23/18 13:05 - Labs Result Diagrams: 05/23/18 06:12 05/23/18 06:12 Labs: Laboratory Results - last 24 hr 05/22/18 05/22/18 05/22/18 22:38 22:38 22:38 WBC 6.1 RBC 5.26 Hgb 14.8 Hct 43.3 MCV 82.3 MCH 28.0 MCHC 34.1 RDW 14.0 Plt Count 211 MPV 8.1 Neut % (Auto) 59.9 Lymph % (Auto) 26.6 Tyler % (Auto) 11.9 H Eos % (Auto) 1.1 Baso % (Auto) 0.5 Neut # (Auto) 3.7 Lymph # (Auto) 1.6 Tyler # (Auto) 0.7 Eos # (Auto) 0.1 Baso # (Auto) 0.0 PT 11.7 INR 1.1 APTT 35 H Sodium 139 Potassium 3.9 Chloride 98 Carbon Dioxide 32 H Anion Gap 13 BUN 24 H Creatinine 1.5 Est GFR ( Amer) 58 Est GFR (Non-Af Amer) 48 Random Glucose 101 Calcium 9.4 Total Bilirubin 0.6 AST 41 ALT 31 Alkaline Phosphatase 64 Total Protein 7.4 Albumin 4.0 Globulin 3.4 Albumin/Globulin Ratio 1.2 05/23/18 05/23/18 06:12 06:12 WBC 6.2 RBC 5.38 Hgb 14.9 Hct 43.8 MCV 81.4 MCH 27.7 MCHC 34.0 RDW 13.9 Plt Count 244 MPV 8.4 Neut % (Auto) 87.2 H Lymph % (Auto) 10.0 L Tyler % (Auto) 2.4 Eos % (Auto) 0.1 Baso % (Auto) 0.3 Neut # (Auto) 5.4 Lymph # (Auto) 0.6 L Tyler # (Auto) 0.2 Eos # (Auto) 0.0 Baso # (Auto) 0.0 PT INR APTT Sodium 139 Potassium 4.0 Chloride 101 Carbon Dioxide 28 Anion Gap 15 BUN 24 H Creatinine 1.7 H Est GFR ( Amer) 50 Est GFR (Non-Af Amer) 41 Random Glucose 161 H Calcium 9.6 Total Bilirubin 0.5 AST 33 ALT 34 Alkaline Phosphatase 73 Total Protein 7.9 Albumin 4.3 Globulin 3.5 Albumin/Globulin Ratio 1.2
--- NOTE | 2018-05-23 14:48 | CP.PCM.CON ---
History of Present Illness - History of Present Illness History of Present Illness: Dictated small hyperdnse hemorrhage l cerebellum min ME on 4th no hydro pt asymptomatic probable hypertensive hem. rec MRI ins10 - 14 days to r/o underlying tumor Past Patient History - Infectious Disease Hx of Infectious Diseases: None - Past Medical History & Family History Past Medical History?: Yes - Past Social History Smoking Status: Never Smoked - CARDIAC Hx Cardiac Disorders: Yes Hx Hypertension: Yes - PULMONARY Hx Respiratory Disorders: Yes Other/Comment: hx of sarcoidosis - NEUROLOGICAL Hx Neurological Disorder: No - HEENT Hx HEENT Problems: No - RENAL Hx Chronic Kidney Disease: No - ENDOCRINE/METABOLIC Hx Endocrine Disorders: No - HEMATOLOGICAL/ONCOLOGICAL Hx Blood Disorders: Yes Hx Cancer: Yes (colon ca 2006) - INTEGUMENTARY Hx Dermatological Problems: No - MUSCULOSKELETAL/RHEUMATOLOGICAL Hx Musculoskeletal Disorders: No Hx Falls: No - GASTROINTESTINAL Hx Gastrointestinal Disorders: No - GENITOURINARY/GYNECOLOGICAL Hx Genitourinary Disorders: No - PSYCHIATRIC Hx Psychophysiologic Disorder: No Hx Substance Use: No - SURGICAL HISTORY Hx Surgeries: Yes Other/Comment: Colon Resection 2006 - ANESTHESIA Hx Anesthesia: Yes Hx Anesthesia Reactions: No Hx Malignant Hyperthermia: No Has any member of the family had a problem w/ anesthesia?: No Meds Allergies/Adverse Reactions: Allergies Allergy/AdvReac Type Severity Reaction Status Date / Time dye Allergy Uncoded 05/22/18 21:26 - Medications Medications: Current Medications Acetaminophen (Tylenol 325mg Tab) 650 mg PO Q4 PRN PRN Reason: Pain, Mild (1-3) Amlodipine Besylate (Norvasc) 10 mg PO DAILY [facility] Last Admin: 05/23/18 12:32 Dose: 10 mg Dexamethasone (Decadron Inj) 4 mg IV Q6H [facility] Last Admin: 05/23/18 12:31 Dose: 4 mg Famotidine (Pepcid) 20 mg IVP Q12 [facility] Last Admin: 05/23/18 09:34 Dose: 20 mg Hydrochlorothiazide (Hydrodiuril) 25 mg PO DAILY [facility] Last Admin: 05/23/18 12:32 Dose: 25 mg Nicardipine HCl 25 mg/ Sodium (Chloride) 250 mls @ 50 mls/hr IV .Q5H PRN; 5 MG/ HR PRN Reason: Protocol Last Admin: 05/23/18 08:01 Dose: 3 mg/hr, 30 mls/hr Losartan Potassium (Cozaar) 100 mg PO DAILY [facility] Last Admin: 05/23/18 12:32 Dose: 100 mg Results - Vital Signs Recent Vital Signs: Last Vital Signs Temp 97.6 F 05/23/18 12:00 Pulse 106 H 05/23/18 14:05 Resp 17 05/23/18 14:05 BP 153/99 H 05/23/18 13:42 Pulse Ox 96 05/23/18 14:05 - Labs Result Diagrams: 05/23/18 06:12 05/23/18 06:12 Labs: Laboratory Results - last 24 hr 05/22/18 05/22/18 05/22/18 22:38 22:38 22:38 WBC 6.1 RBC 5.26 Hgb 14.8 Hct 43.3 MCV 82.3 MCH 28.0 MCHC 34.1 RDW 14.0 Plt Count 211 MPV 8.1 Neut % (Auto) 59.9 Lymph % (Auto) 26.6 Haakon % (Auto) 11.9 H Eos % (Auto) 1.1 Baso % (Auto) 0.5 Neut # (Auto) 3.7 Lymph # (Auto) 1.6 Haakon # (Auto) 0.7 Eos # (Auto) 0.1 Baso # (Auto) 0.0 PT 11.7 INR 1.1 APTT 35 H Sodium 139 Potassium 3.9 Chloride 98 Carbon Dioxide 32 H Anion Gap 13 BUN 24 H Creatinine 1.5 Est GFR ( Amer) 58 Est GFR (Non-Af Amer) 48 Random Glucose 101 Calcium 9.4 Total Bilirubin 0.6 AST 41 ALT 31 Alkaline Phosphatase 64 Total Protein 7.4 Albumin 4.0 Globulin 3.4 Albumin/Globulin Ratio 1.2 05/23/18 05/23/18 06:12 06:12 WBC 6.2 RBC 5.38 Hgb 14.9 Hct 43.8 MCV 81.4 MCH 27.7 MCHC 34.0 RDW 13.9 Plt Count 244 MPV 8.4 Neut % (Auto) 87.2 H Lymph % (Auto) 10.0 L Haakon % (Auto) 2.4 Eos % (Auto) 0.1 Baso % (Auto) 0.3 Neut # (Auto) 5.4 Lymph # (Auto) 0.6 L Haakon # (Auto) 0.2 Eos # (Auto) 0.0 Baso # (Auto) 0.0 PT INR APTT Sodium 139 Potassium 4.0 Chloride 101 Carbon Dioxide 28 Anion Gap 15 BUN 24 H Creatinine 1.7 H Est GFR ( Amer) 50 Est GFR (Non-Af Amer) 41 Random Glucose 161 H Calcium 9.6 Total Bilirubin 0.5 AST 33 ALT 34 Alkaline Phosphatase 73 Total Protein 7.9 Albumin 4.3 Globulin 3.5 Albumin/Globulin Ratio 1.2
--- NOTE | 2018-05-23 15:26 | CP.PCM.CON ---
History of Present Illness - History of Present Illness History of Present Illness: reason for consultation: lung mass 58-year-old male with history of colon cancer status post resection in 2006, sarcoidosis, hypertension who was admitted with headache, vertigo and elevated blood pressure. CAT scan of the chest showed left lung mass. Patient also complaining of cough for the past few weeks but denies shortness of breath, denies fever chills. PMX: as above. Patient was offered chemotherapy in 2006 which he refused and started holistic treatment PSurgHx: Lobectomy of L lung at age 9 2/2 sarcoidosis Allergies: Dye used in eye exams, IV contrast Current meds: Tylenol 650 mg q4h prn, Norvasc 10 mg daily, Decadron 4 mg IV q6h , Pepcid 20 mg IVP q12h, HCTZ 25 mg daily, Losartan 100 mg daily, Nicardipine drip Fam hx: denies Soc hx: Denies smoking or illicit drug use, social alcohol use Review of Systems - Review of Systems All systems: reviewed and no additional remarkable complaints except (current of cough, headache) Past Patient History - Infectious Disease Hx of Infectious Diseases: None - Past Medical History & Family History Past Medical History?: Yes - Past Social History Smoking Status: Never Smoked - CARDIAC Hx Cardiac Disorders: Yes Hx Hypertension: Yes - PULMONARY Hx Respiratory Disorders: Yes Other/Comment: hx of sarcoidosis - NEUROLOGICAL Hx Neurological Disorder: No - HEENT Hx HEENT Problems: No - RENAL Hx Chronic Kidney Disease: No - ENDOCRINE/METABOLIC Hx Endocrine Disorders: No - HEMATOLOGICAL/ONCOLOGICAL Hx Blood Disorders: Yes Hx Cancer: Yes (colon ca 2006) - INTEGUMENTARY Hx Dermatological Problems: No - MUSCULOSKELETAL/RHEUMATOLOGICAL Hx Musculoskeletal Disorders: No Hx Falls: No - GASTROINTESTINAL Hx Gastrointestinal Disorders: No - GENITOURINARY/GYNECOLOGICAL Hx Genitourinary Disorders: No - PSYCHIATRIC Hx Psychophysiologic Disorder: No Hx Substance Use: No - SURGICAL HISTORY Hx Surgeries: Yes Other/Comment: Colon Resection 2006 - ANESTHESIA Hx Anesthesia: Yes Hx Anesthesia Reactions: No Hx Malignant Hyperthermia: No Has any member of the family had a problem w/ anesthesia?: No Meds Allergies/Adverse Reactions: Allergies Allergy/AdvReac Type Severity Reaction Status Date / Time dye Allergy Uncoded 05/22/18 21:26 - Medications Medications: Current Medications Acetaminophen (Tylenol 325mg Tab) 650 mg PO Q4 PRN PRN Reason: Pain, Mild (1-3) Amlodipine Besylate (Norvasc) 10 mg PO DAILY [facility] Last Admin: 05/23/18 12:32 Dose: 10 mg Dexamethasone (Decadron Inj) 4 mg IV Q6H [facility] Last Admin: 05/23/18 12:31 Dose: 4 mg Famotidine (Pepcid) 20 mg IVP Q12 [facility] Last Admin: 05/23/18 09:34 Dose: 20 mg Hydrochlorothiazide (Hydrodiuril) 25 mg PO DAILY [facility] Last Admin: 05/23/18 12:32 Dose: 25 mg Nicardipine HCl 25 mg/ Sodium (Chloride) 250 mls @ 50 mls/hr IV .Q5H PRN; 5 MG/ HR PRN Reason: Protocol Last Admin: 05/23/18 08:01 Dose: 3 mg/hr, 30 mls/hr Losartan Potassium (Cozaar) 100 mg PO DAILY [facility] Last Admin: 05/23/18 12:32 Dose: 100 mg Physical Exam - Head Exam Head Exam: ATRAUMATIC, NORMOCEPHALIC - ENT Exam ENT Exam: Mucous Membranes Moist - Neck Exam Neck exam: Positive for: Normal Inspection - Respiratory Exam Respiratory Exam: Clear to Auscultation Bilateral - Cardiovascular Exam Cardiovascular Exam: REGULAR RHYTHM - GI/Abdominal Exam GI & Abdominal Exam: Normal Bowel Sounds, Soft Results - Vital Signs Recent Vital Signs: Last Vital Signs Temp 97.6 F 05/23/18 12:00 Pulse 106 H 05/23/18 14:05 Resp 17 05/23/18 14:05 BP 153/99 H 05/23/18 13:42 Pulse Ox 96 05/23/18 14:05 - Labs Result Diagrams: 05/23/18 06:12 05/23/18 06:12 Labs: Laboratory Results - last 24 hr 05/22/18 05/22/18 05/22/18 22:38 22:38 22:38 WBC 6.1 RBC 5.26 Hgb 14.8 Hct 43.3 MCV 82.3 MCH 28.0 MCHC 34.1 RDW 14.0 Plt Count 211 MPV 8.1 Neut % (Auto) 59.9 Lymph % (Auto) 26.6 [place] % (Auto) 11.9 H Eos % (Auto) 1.1 Baso % (Auto) 0.5 Neut # (Auto) 3.7 Lymph # (Auto) 1.6 [place] # (Auto) 0.7 Eos # (Auto) 0.1 Baso # (Auto) 0.0 PT 11.7 INR 1.1 APTT 35 H Sodium 139 Potassium 3.9 Chloride 98 Carbon Dioxide 32 H Anion Gap 13 BUN 24 H Creatinine 1.5 Est GFR ( Amer) 58 Est GFR (Non-Af Amer) 48 Random Glucose 101 Calcium 9.4 Total Bilirubin 0.6 AST 41 ALT 31 Alkaline Phosphatase 64 Total Protein 7.4 Albumin 4.0 Globulin 3.4 Albumin/Globulin Ratio 1.2 05/23/18 05/23/18 06:12 06:12 WBC 6.2 RBC 5.38 Hgb 14.9 Hct 43.8 MCV 81.4 MCH 27.7 MCHC 34.0 RDW 13.9 Plt Count 244 MPV 8.4 Neut % (Auto) 87.2 H Lymph % (Auto) 10.0 L [place] % (Auto) 2.4 Eos % (Auto) 0.1 Baso % (Auto) 0.3 Neut # (Auto) 5.4 Lymph # (Auto) 0.6 L [place] # (Auto) 0.2 Eos # (Auto) 0.0 Baso # (Auto) 0.0 PT INR APTT Sodium 139 Potassium 4.0 Chloride 101 Carbon Dioxide 28 Anion Gap 15 BUN 24 H Creatinine 1.7 H Est GFR ( Amer) 50 Est GFR (Non-Af Amer) 41 Random Glucose 161 H Calcium 9.6 Total Bilirubin 0.5 AST 33 ALT 34 Alkaline Phosphatase 73 Total Protein 7.9 Albumin 4.3 Globulin 3.5 Albumin/Globulin Ratio 1.2 Assessment & Plan (1) Mass of left lung Status: Acute Comment: lung biopsy. Patient wants to wait and discuss with family. Control hypertension. Seen by neurosurgeon for cerebellar mass (2) Brain mass Status: Acute
[2018-05-24] MEDS: Dexamethasone 4 mg/1 ml IV SCH ×4 (00:02→17:15)
[2018-05-24 06:29] LABS: BASO % 0.1 % (0.0-2.0); HEMOGLOBIN 15.3 g/dL (12.0-18.0); LYMPH % 7.2 % (20.0-40.0); MEAN CELL VOLUME 80.7 fL (80.0-94.0); MEAN CORPUSCULAR HEMOGLOBIN 27.8 pg (27.0-31.0); MEAN CORPUSCULAR HGB CONC 34.5 g/dL (33.0-37.0); MEAN PLATELET VOLUME 8.2 fL (7.2-11.7); MONO # 0.6 K/uL (0.0-0.8); MONO % 4.8 % (0.0-10.0); NEUT # 11.6 K/uL (1.8-7.0); NEUT % 87.9 % (50.0-75.0); NRBC % 0.1 % (0.0-2.0); PLATELET COUNT 244 K/uL (130-400); RBC 5.49 Mil/uL (4.40-5.90); RED CELL DISTRIBUTION WIDTH 14.1 % (11.5-14.5); WHITE BLOOD COUNT 13.2 K/uL (4.8-10.8)
[2018-05-24 06:41] LABS: ALB/GLOB RATIO 1.1 (1.0-2.1); CALCIUM 9.7 mg/dl (8.6-10.4)
[2018-05-24] MEDS ORDERED: Gadodiamide 287 mg/ml 20 ml IV ONE (09:46)
[2018-05-24 09:48] LABS: BANDS 1 % (0-2); LYMPHOCYTE 9 % (20-40); MONOCYTE 4 % (0-10); NEUTROPHIL 86 % (50-75); TOTAL CELLS COUNTED 100
[2018-05-24 09:49] LABS: ANISOCYTOSIS SLIGHT; LARGE PLATELETS PRESENT; PLATELET ESTIMATE NORMAL (NORMAL)
--- NOTE | 2018-05-24 10:59 | CP.PCM.PN ---
Subjective - Date & Time of Evaluation Date of Evaluation: 05/24/18 Time of Evaluation: 10:40 - Subjective Subjective: Patient seen and examined Denies shortness of breath Afebrile MRI of brain done Objective - Vital Signs/Intake and Output Vital Signs (last 24 hours): Temp Pulse Resp BP Pulse Ox 98.3 F 88 10 L 165/96 H 100 05/24/18 08:00 05/24/18 10:30 05/24/18 10:30 05/24/18 10:28 05/24/18 08:27 Intake and Output: 05/24/18 05/24/18 06:59 18:59 Intake Total 0 112 Output Total 0 450 Balance 0 -338 - Medications Medications: Current Medications Acetaminophen (Tylenol 325mg Tab) 650 mg PO Q4 PRN PRN Reason: Pain, Mild (1-3) Amlodipine Besylate (Norvasc) 10 mg PO DAILY [facility] Last Admin: 05/24/18 10:35 Dose: 10 mg Dexamethasone (Decadron Inj) 4 mg IV Q6H [facility] Last Admin: 05/24/18 06:35 Dose: 4 mg Famotidine (Pepcid) 20 mg IVP Q12 [facility] Last Admin: 05/24/18 10:35 Dose: 20 mg Hydrochlorothiazide (Hydrodiuril) 25 mg PO DAILY [facility] Last Admin: 05/24/18 10:35 Dose: 25 mg Nicardipine HCl 25 mg/ Sodium (Chloride) 250 mls @ 50 mls/hr IV .Q5H PRN; 5 MG/ HR PRN Reason: Protocol Last Titration: 05/23/18 15:30 Dose: 0 mg/hr, 0 mls/hr Losartan Potassium (Cozaar) 100 mg PO DAILY [facility] Last Admin: 05/24/18 10:35 Dose: 100 mg Losartan Potassium (Cozaar) 50 mg PO ONCE PRN PRN Reason: for BP greater than 160/90 - Labs Labs: 05/24/18 06:18 05/24/18 06:13 PT 11.7 SECONDS (9.7-12.2) 05/22/18 22:38 INR 1.1 05/22/18 22:38 APTT 35 SECONDS (21-34) H 05/22/18 22:38 - Head Exam Head Exam: ATRAUMATIC, NORMOCEPHALIC - ENT Exam ENT Exam: Mucous Membranes Moist - Neck Exam Neck Exam: Normal Inspection - Respiratory Exam Respiratory Exam: Clear to Ausculation Bilateral - Cardiovascular Exam Cardiovascular Exam: REGULAR RHYTHM - GI/Abdominal Exam GI & Abdominal Exam: Soft Assessment and Plan (1) Mass of left lung Assessment & Plan: need lung biopsy MRI report Continue present treatment Status: Acute (2) Brain mass Status: Acute
--- NOTE | 2018-05-24 15:22 | CP.PCM.PN ---
Subjective - Date & Time of Evaluation Date of Evaluation: 05/24/18 Time of Evaluation: 15:20 - Subjective Subjective: CHIEF COMPLAINTS TODAY : Currently patient is alert awake in no distress. Systolic blood pressure is below 200 and diastolic is below 90 mmHg ROS. HEENT : N. Resp : No cough, wheezing ,pleuritic CP ,or hemoptysis Cardio : No anginal CP, PND, orthopnea, palpitation GI : No abd.pain, n/v ,diarrhea or GI bleeding . BELL STAFF : No headache, vertigo, focal deficit. Musculoskel : No joint swelling , Derm : No rash Psych : Normal affect. Ext : No swelling ,calf pain PE. Pt. is alert awake in no distress. V.S As noted in the chart Head ,ear nose,throat and eyes : Normal. Neck : Supple with normal carotids. Lungs: Clear air entry. Heart : S1 & S2 normal with S4. No murmur. Abd : Soft non tender with normal bowel sounds. Neuro : Moves all ext. with no localized deficit. Ext : No edema with intact pulses.Non tender calves Derm : No rashes or decubitus ulcer. LABS/RADIOLOGY: ASSESSMENT/PLAN : Extensively discussed with the family and the patient about his current findings on the CAT scan. We will check MRI. Objective - Vital Signs/Intake and Output Vital Signs (last 24 hours): Temp Pulse Resp BP Pulse Ox 97.7 F 98 H 27 H 176/90 H 98 05/24/18 12:00 05/24/18 15:13 05/24/18 15:00 05/24/18 14:27 05/24/18 12:00 Intake and Output: 05/24/18 05/24/18 11:59 23:59 Intake Total 112 Output Total 450 Balance -338 - Medications Medications: Current Medications Acetaminophen (Tylenol 325mg Tab) 650 mg PO Q4 PRN PRN Reason: Pain, Mild (1-3) Amlodipine Besylate (Norvasc) 10 mg PO DAILY [facility] Last Admin: 05/24/18 10:35 Dose: 10 mg Dexamethasone (Decadron Inj) 4 mg IV Q6H [facility] Last Admin: 05/24/18 11:40 Dose: 4 mg Famotidine (Pepcid) 20 mg IVP Q12 [facility] Last Admin: 05/24/18 10:35 Dose: 20 mg Hydrochlorothiazide (Hydrodiuril) 25 mg PO DAILY [facility] Last Admin: 05/24/18 10:35 Dose: 25 mg Nicardipine HCl 25 mg/ Sodium (Chloride) 250 mls @ 50 mls/hr IV .Q5H PRN; 5 MG/ HR PRN Reason: Protocol Last Titration: 05/23/18 15:30 Dose: 0 mg/hr, 0 mls/hr Losartan Potassium (Cozaar) 100 mg PO DAILY [facility] Last Admin: 05/24/18 10:35 Dose: 100 mg Losartan Potassium (Cozaar) 50 mg PO ONCE PRN PRN Reason: for BP greater than 160/90 - Labs Labs: 05/24/18 06:18 05/24/18 06:13 PT 11.7 SECONDS (9.7-12.2) 05/22/18 22:38 INR 1.1 05/22/18 22:38 APTT 35 SECONDS (21-34) H 05/22/18 22:38
[2018-05-24 16:34] VITALS: TEMP 98.4; O2SAT 97
[2018-05-24 19:01] VITALS: BP 143/92
[2018-05-24 19:20] VITALS: PULSE 109; RESP 21
--- NOTE | 2018-05-24 22:44 | CARD ---
APPROVED REPORT Date of service: 05/22/2018 EKG Measurement Heart [id number] <Conclusion> Normal sinus rhythm Possible Left atrial enlargement Right bundle branch block Left anterior fascicular block Bifascicular block Left ventricular hypertrophy Abnormal ECG
--- NOTE | 2018-05-25 15:16 | CP.PCM.DIS ---
Provider - Provider Date of Admission: 05/22/18 23:39 Attending physician: Olivia Ramos MD Time Spent in preparation of Discharge (in minutes): 36 Hospital Course - Lab Results Lab Results: Micro Results 05/23/18 01:09 Naris MRSA Culture (Admit) - Final MRSA NOT DETECTED Most Recent Lab Values WBC 13.2 K/uL (4.8-10.8) H D 05/24/18 06:18 RBC 5.49 Mil/uL (4.40-5.90) 05/24/18 06:18 Hgb 15.3 g/dL (12.0-18.0) 05/24/18 06:18 Hct 44.3 % (35.0-51.0) 05/24/18 06:18 MCV 80.7 fL (80.0-94.0) 05/24/18 06:18 MCH 27.8 pg (27.0-31.0) 05/24/18 06:18 MCHC 34.5 g/dL (33.0-37.0) 05/24/18 06:18 RDW 14.1 % (11.5-14.5) 05/24/18 06:18 Plt Count 244 K/uL (130-400) 05/24/18 06:18 MPV 8.2 fL (7.2-11.7) 05/24/18 06:18 Neut % (Auto) 87.9 % (50.0-75.0) H 05/24/18 06:18 Lymph % (Auto) 7.2 % (20.0-40.0) L 05/24/18 06:18 [place] % (Auto) 4.8 % (0.0-10.0) 05/24/18 06:18 Eos % (Auto) 0.0 % (0.0-4.0) 05/24/18 06:18 Baso % (Auto) 0.1 % (0.0-2.0) 05/24/18 06:18 Neut # (Auto) 11.6 K/uL (1.8-7.0) H 05/24/18 06:18 Lymph # (Auto) 1.0 K/uL (1.0-4.3) 05/24/18 06:18 [place] # (Auto) 0.6 K/uL (0.0-0.8) 05/24/18 06:18 Eos # (Auto) 0.0 K/uL (0.0-0.7) 05/24/18 06:18 Baso # (Auto) 0.0 K/uL (0.0-0.2) 05/24/18 06:18 Neutrophils % (Manual) 86 % (50-75) H 05/24/18 06:18 Band Neutrophils % 1 % (0-2) 05/24/18 06:18 Lymphocytes % (Manual) 9 % (20-40) L 05/24/18 06:18 Monocytes % (Manual) 4 % (0-10) 05/24/18 06:18 Platelet Estimate Normal (NORMAL) 05/24/18 06:18 Large Platelets Present 05/24/18 06:18 Anisocytosis (manual) Slight 05/24/18 06:18 PT 11.7 SECONDS (9.7-12.2) 05/22/18 22:38 INR 1.1 05/22/18 22:38 APTT 35 SECONDS (21-34) H 05/22/18 22:38 Sodium 141 mmol/L (132-148) 05/24/18 06:13 Potassium 4.2 mmol/L (3.6-5.2) 05/24/18 06:13 Chloride 103 mmol/L (98-107) 05/24/18 06:13 Carbon Dioxide 26 mmol/L (22-30) 05/24/18 06:13 Anion Gap 16 (10-20) 05/24/18 06:13 BUN 38 mg/dL (9-20) H 05/24/18 06:13 Creatinine 1.9 mg/dL (0.8-1.5) H 05/24/18 06:13 Est GFR ( Amer) 44 05/24/18 06:13 Est GFR (Non-Af Amer) 36 05/24/18 06:13 Random Glucose 138 mg/dL (75-110) H 05/24/18 06:13 Calcium 9.7 mg/dl (8.6-10.4) 05/24/18 06:13 Phosphorus 4.8 mg/dL (2.5-4.5) H 05/24/18 06:13 Magnesium 2.3 mg/dL (1.6-2.3) 05/24/18 06:13 Total Bilirubin 0.6 mg/dL (0.2-1.3) 05/24/18 06:13 AST 28 U/L (17-59) 05/24/18 06:13 ALT 30 U/L (21-72) 05/24/18 06:13 Alkaline Phosphatase 68 U/L (38-126) 05/24/18 06:13 Total Protein 7.5 g/dL (6.3-8.3) 05/24/18 06:13 Albumin 4.0 g/dL (3.5-5.0) 05/24/18 06:13 Globulin 3.5 gm/dL (2.2-3.9) 05/24/18 06:13 Albumin/Globulin Ratio 1.1 (1.0-2.1) 05/24/18 06:13 - Hospital Course Hospital Course: Patient has a history of hypertension was seen by patients PMD was prescribed new medication patient did not take any medication for the last 3 weeks for the last few days patient is been complaining of dizziness and unsteady gait and severe headache presented to [facility] ER. Initial blood pressure was 1 92 /1 24 mmHg and the CAT scan of the head shows mass in the left cerebellar lobe with some mass-effect on the fourth ventricle. Patient was admitted ICU started with IV nicardipine with resolution of his headache and dizziness. There is no evidence of any intracranial hemorrhage. CAT scan of the chest was done and showed a mass in the left upper lobe and 2 other lesions in the right lungs. There are also masses in the adrenal glands. PAST HIST. Patient has a diagnosis of adeno CA of the colon stage III diagnosed 2006 with initial resection. Patient declined chemotherapy and tried home therapy. Patient was admitted in the ICU and monitor his blood pressure. The blood pressure was controlled with IV nicardipine and subsequently by mouth amlodipine and Cozaar and HydroDIURIL. Patient blood pressure prior to discharge was under 150 systolic. Patient had no further symptoms of headache dizziness or abnormal gait. MRI of the head shows the similar about 3 cm left cerebellar mass with surrounding edema Other workup showed patient had masses in the left lung adrenal glands and cerebellum. This was extensively discussed with the family and the patient and their plan was to follow-up with his physician at [facility]. Patient was given a prescription for Cozaar amlodipine HydroDIURIL 6 days of prednisone with Pepcid. Patient was strongly advised to follow-up with his physician in 48 hours. Discharge Exam - Head Exam Head Exam: ATRAUMATIC, NORMOCEPHALIC Discharge Plan - Follow Up Plan Condition: SERIOUS Disposition: HOME/ ROUTINE Instructions: High Blood Pressure (DC), High Blood Pressure Emergencies
--- NOTE | 2018-05-26 07:19 | CON ---
DATE: 05/23/2018 HISTORY OF PRESENT ILLNESS: This is a 68-year-old gentleman with a history of colon cancer. He had a resection, but then apparently declined the recommended chemotherapy. He was down in the [place] and started vomiting. He thought he has a food poisoning. Delayed medical attention for a couple of days, developed somewhat of headache. He was seen by his PMD and was found to be markedly hypertensive. Ultimately, he was just referred to the [facility] ER. He entered with a systolic blood pressure of 210. He underwent a CT of the brain that showed cerebellar hemorrhage. Neurosurgical evaluation was requested. On interviewing him today, interestingly, he is completely asymptomatic. He denies even a headache. He said that his noted that he was little bit off balance, but he himself is not. Currently, no nausea or vomiting. Really, no other symptoms. PAST MEDICAL HISTORY: As above. Significant hypertension. He admits to not taking his medications over the past several days. Again, history of colon cancer in 2006, declined the recommended chemotherapy. Otherwise, his medications, allergies, and social history are reviewed. PHYSICAL EXAMINATION: GENERAL: The patient is bright, awake, and alert. NEUROLOGIC: His speech and mental status are entirely normal. Pupils are equal and reactive. EOMs are full. Face is symmetric. All cranial nerves are intact. He has excellent [id number] on the right, and in the left, it is a little bit off but not terrible. ROMs are good. Motor and sensory are intact. LABORATORY DATA: CT of the brain done last night, repeated today basically showed that there is 2.8 cm hemorrhage in the left cerebellar hemisphere. There was already fair amounts of surrounding edema indicating that it is at least a couple of days old per his history. There is a little bit of mass effect on the fourth ventricle but not terrible. It is quiet patent, and there was no hydrocephalus. IMPRESSION AND PLAN: Based on the history, most likely this represents hypertensive hemorrhage. However with a history of colon cancer and now found a large lung mass, certainly a hemorrhagic metastasis cannot be ruled out. I do not think this could be adequately evaluated at this point in time. Therefore, I would recommend obtaining an MRI perhaps in 10 to 14 days to rule out some of the blood to dissolve and reabsorb, and determine if in fact, there is an underlying tumor. In any case, assuming no surgery required from a decompressive standpoint at this point in time. The above was discussed with the patient. Renny Hartmann MD
--- NOTE | 2018-05-26 11:13 | MRI ---
Date of service: 05/24/2018 PROCEDURE: MRI BRAIN WITH AND WITHOUT CONTRAST HISTORY: assess cerebellar mass COMPARISON: Noncontrast head CT from 05/22/2018. TECHNIQUE: Multiplanar, multisequence MR images of the brain were obtained with and without intravenous contrast enhancement. 20 mL Omniscan was injected intravenously. FINDINGS: HEMORRHAGE: None DWI: No evidence of an acute or early subacute infarction. BRAIN PARENCHYMA: There is a 3.3 x 2.4 cm heterogeneously enhancing round mass which demonstrates increased magnetic susceptibility on gradient images with a thick lobular T2 hypo intense peripheral rim in the left cerebellar hemisphere with moderate surrounding vasogenic edema, mild mass effect on the medulla and 4th ventricle without evidence for midline shift or herniation ENHANCEMENT: No abnormal leptomeningeal enhancement. VENTRICLES: There is mild age-related global parenchymal volume loss and proportionate enlargement of the ventricles and cortical sulci. No hydrocephalus. CRANIUM: Unremarkable. ORBITS: Grossly unremarkable. PARANASAL SINUSES/MASTOIDS: There is a retention cyst/ polyp in the right maxillary sinus. There is mild mucosal thickening in the remaining paranasal sinuses. Large right and trace left mastoid effusions. VASCULAR SYSTEM: There are normal signal voids in the larger intracranial arteries. OTHER FINDINGS: None . 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 A preliminary report was provided by [facility] services.
== END 2018-05-24 20:35 | disposition home or self-care (01) | DRG 78 ==
LOC: C.ER 21:05 → C.9I 23:39
PROVIDERS: ADMIT Internal Medicine Cardiovascular Disease; ATTEND Internal Medicine Cardiovascular Disease
DX: I67.4 Hypertensive encephalopathy (principal); I16.1 Hypertensive emergency; C79.31 Secondary malignant neoplasm of brain; C78.02 Secondary malignant neoplasm of left lung; C79.72 Secondary malignant neoplasm of left adrenal gland; C79.71 Secondary malignant neoplasm of right adrenal gland; C18.9 Malignant neoplasm of colon, unspecified; N17.9 Acute kidney failure, unspecified; I10 Essential (primary) hypertension; D86.9 Sarcoidosis, unspecified; Z90.49 Acquired absence of other specified parts of digestive tract

== ENCOUNTER 2018-06-04 19:21 | Emergency (ER) | payer OTHER ==
[2018-06-04 19:38] VITALS: RESP 16; TEMP 98.6
[2018-06-04 20:01] LABS: BASO % 0.4 % (0.0-2.0); EOS % 0.3 % (0.0-4.0); HEMOGLOBIN 15.8 g/dL (12.0-18.0); LYMPH # 1.3 K/uL (1.0-4.3); LYMPH % 15.3 % (20.0-40.0); MEAN CELL VOLUME 80.3 fL (80.0-94.0); MEAN CORPUSCULAR HGB CONC 34.9 g/dL (33.0-37.0); MEAN PLATELET VOLUME 7.9 fL (7.2-11.7); MONO # 0.5 K/uL (0.0-0.8); MONO % 6.1 % (0.0-10.0); NEUT # 6.5 K/uL (1.8-7.0); NEUT % 77.9 % (50.0-75.0); NRBC % 0.1 % (0.0-2.0); RBC 5.66 Mil/uL (4.40-5.90); RED CELL DISTRIBUTION WIDTH 13.7 % (11.5-14.5); WHITE BLOOD COUNT 8.4 K/uL (4.8-10.8)
--- NOTE | 2018-06-04 20:06 | C.PDOC ---
History Of Present Illness 58 y/o male with recent diagnosis of hypertension, presents to the ED for evaluation of elevated blood pressure. Patient was recently hospitalized for hypertension, and followed up with Dr. Rosas last week. Currently he is on amlodipine and Benicar/Hct, and reports good compliance. Patient notes his pressure has been slowly coming down but today it went up to 160/101, prompting this ED visit. He is currently asymptomatic. Denies any headache, visual changes, palpitations, chest pain, SOB, weakness, or other complaints. Patient states he did have a box of mac and cheese for lunch this afternoon. Time Seen by Provider: 06/04/18 19:33 Chief Complaint (Nursing): High Blood Pressure History Per: Patient History/Exam Limitations: no limitations Onset/Duration Of Symptoms: Other (N/A) Quality Of Symptoms: Asymptomatic Exacerbating Factor(s): Pos: None Past Medical History Reviewed: Historical Data, Nursing Documentation, Vital Signs Vital Signs: Last Vital Signs Temp 98.6 F 06/04/18 19:34 Pulse 105 H 06/04/18 19:34 Resp 16 06/04/18 19:34 BP 147/94 H 06/04/18 19:54 Pulse Ox 98 06/04/18 19:34 - Medical History PMH: HTN Denies: Chronic Kidney Disease Family History: States: Unknown Family Hx - Social History Hx Alcohol Use: Yes (occasional) Hx Substance Use: No - Immunization History Hx Tetanus Toxoid Vaccination: No Hx Influenza Vaccination: No Hx Pneumococcal Vaccination: No Review Of Systems Constitutional: Negative for: Fever, Chills Eyes: Negative for: Vision Change ENT: Negative for: Nose Congestion Cardiovascular: Negative for: Chest Pain, Palpitations Respiratory: Negative for: Cough, Shortness of Breath Neurological: Negative for: Weakness, Numbness, Incoordination, Change in Speech, Headache, Dizziness Physical Exam - Physical Exam Appears: Non-toxic, No Acute Distress, Other (Pressure now down to 147/94 in the room) Skin: Normal Color, Warm, Dry Head: Atraumatic, Normacephalic Eye(s): bilateral: Normal Inspection, PERRL, EOMI Nose: Normal Oral Mucosa: Moist Neck: Normal ROM Chest: Symmetrical Cardiovascular: Rhythm Regular, No Murmur Respiratory: Normal Breath Sounds, No Accessory Muscle Use Gastrointestinal/Abdominal: Soft, No Tenderness, No Distention Extremity: Bilateral: Atraumatic, Normal Color And Temperature, Normal ROM Pulses: Left Dorsalis Pedis: Normal, Right Dorsalis Pedis: Normal Neurological/Psych: Oriented x3, Normal Speech Gait: Steady ED Course And Treatment - Laboratory Results Result Diagrams: 06/04/18 19:54 06/04/18 19:54 Lab Interpretation: No Changes Compared To Prior Results ECG: Interpreted By Me ECG Rhythm: Sinus Rhythm (with bifascicular block and LVH) ECG Interpretation: No Changes From Prior O2 Sat by Pulse Oximetry: 98 (RA) Pulse Ox Interpretation: Normal Reevaluation Time: 22:07 Reassessment Condition: Improved (BP now 134/90) Medical Decision Making Medical Decision Making: Impression: Hypertension Initial Plan: --CMP --CBC --EKG Disposition Counseled Patient/Family Regarding: Studies Performed, Diagnosis, Need For Followup - Disposition Referrals: Aleks Rosas MD [Staff Provider] - Disposition: HOME/ ROUTINE Disposition Time: 22:07 Condition: IMPROVED Instructions: High Blood Pressure in Adults, DASH Diet Forms: 8aweek (Scottish) - Clinical Impression Clinical Impression: Hypertension - Scribe Statement The provider has reviewed the documentation as recorded by the Nikhilibe She Owens Provider Attestation: All medical record entries made by the Scribe were at my direction and personally dictated by me. I have reviewed the chart and agree that the record accurately reflects my personal performance of the history, physical exam, medical decision making, and the department course for this patient. I have also personally directed, reviewed, and agree with the discharge instructions and disposition.
[2018-06-04 20:45] LABS: ALB/GLOB RATIO 1.2 (1.0-2.1); ALBUMIN 4.2 g/dL (3.5-5.0); CALCIUM 10.3 mg/dl (8.6-10.4)
[2018-06-04] MEDS ORDERED: Potassium Chloride 20 mEq ER Tab PO STA (20:54)
[2018-06-04] MEDS ORDERED: Potassium Chloride 20 mEq ER Tab PO ONE (21:19)
[2018-06-04 21:56] VITALS: BP 134/90; PULSE 90
[2018-06-04 22:08] VITALS: O2SAT 98
--- NOTE | 2018-06-06 11:34 | CARD ---
APPROVED REPORT Date of service: 06/04/2018 EKG Measurement Heart [id number] CT 176P61 [id number] <Conclusion> Normal sinus rhythm Possible Left atrial enlargement Right bundle branch block Left anterior fascicular block Bifascicular block Left ventricular hypertrophy with repolarization abnormality Abnormal ECG
== END 2018-06-04 22:17 | disposition home or self-care (01) ==
LOC: C.ER 19:21
DX: I10 Essential (primary) hypertension (principal)